=== PATIENT | male | born 1990 | race Caucasian/White ===

== ENCOUNTER → 2017-12-20 09:30 | Outpatient (CLI) | payer OTHER, SELFPAY ==
--- NOTE | 2017-12-20 | DI.ECHO.S_ITS ---
[place] [facility] +---------+ : : [address] : [address] : : : : [id number] : : : : Phone: [phone]+ Echocardiogram Report + + :Name: JAMES FAITH Study Date: 12/20/2017 Height: 74 in : :[facility] Exam Location: [facility] Weight: 230 lb: : Gender: Male BSA: 2.3 m2 : :: 1990 Age: 27 yrs BP: 15/85 mmHg: :Reason For Study: Palpitations : :Ordering Physician: Kate Serrano : :Georgina Performed By: Simi Page : + + Interpretation Summary 1) Normal left ventricular thickness and size with low systolic function (EF 50-55%). 2) Normal right ventricular size and function. 3) The left atrium is moderately dilated and the right atrium is severely dilated (by volume index) 4) No significant valvular abnormalities. 5) No prior Echo available for comparison. Procedure: A two-dimensional transthoracic echocardiogram with color flow and Doppler was performed. The study quality was technically adequate. There is no prior echocardiogram noted for this patient. The patient was in normal sinus rhythm during the exam. The patient had occasional PVCs during the exam. Left Ventricle: The left ventricle is normal in size. There is normal left ventricular wall thickness. The ejection fraction is estimated to be 50-55%. Left ventricular systolic function is low normal. There are no focal wall motion abnormalities. Diastolic parameters suggest probable normal left ventricular diastolic function and normal filling pressures. Right Ventricle: The right ventricle is normal in size and function. Atria: The left atrium is moderately dilated. The right atrium is severely dilated. There is no Doppler evidence for an interatrial shunt. Mitral Valve: The mitral valve is normal in structure and function. There is trace mitral regurgitation. Aortic Valve: The aortic valve is grossly normal. The aortic valve opens well. There is no aortic valve stenosis. No aortic regurgitation is present. Tricuspid Valve: The tricuspid valve is normal in structure and function. There is a trace or physiologic amount of tricuspid regurgitation. Pulmonary artery pressures cannot be estimated because of the lack of a measurable TR jet velocity. Pulmonic Valve: The pulmonic valve is not well visualized. There is a trace or physiologic amount of pulmonic regurgitation. Great Vessels: The aortic root is normal size. The ascending aorta is normal in size. The pulmonary artery is not well visualized, but is probably normal size. The IVC is of normal diameter and collapses greater than 50% with a sniff. This suggests a low right atrial pressure of 3 mm Hg. Pericardium/ Pleura There is no pericardial effusion. There is no pleural effusion. MMode/2D Measurements & Calculations LVIDd: 5.4 cm LVOT diam: 2.5 cm LVIDs: 4.1 cm Ao root diam: 3.4 cm FS: 24.1 % asc Aorta Diam: 3.0 cm EPSS: 0.32 cm IVSd: 0.89 cm LVPWd: 0.97 cm LV angulo. diameter/BSA (cm/m^2): 2.4 LV sys. diameter/BSA (cm/m^2): 1.8 LA A2 area: 27.8 cm2 RA long axis: 5.6 cm LA A4 area: 26.7 cm2 RA area: 29.7 cm2 LA length (vol): 6.4 cm RA vol: 133.7 ml LA vol: 98.4 ml RA : 58.0 ml/m2 LA vol index: 42.7 ml/m2 RVD1 (basal): 3.8 cm TAPSE: 3.5 cm Doppler Measurements & Calculations Ao V2 max: 133.7 cm/sec LVOT Max Maxi: 100.6 cm/sec Ao V2 mean: 91.1 cm/sec LV V1 max P.0 mmHg Ao max P.2 mmHg LV V1 VTI: 19.9 cm Ao mean P.7 mmHg MAXINE(I,D): 3.4 cm2 Ao V2 VTI: 27.8 cm MAXINE(V,D): 3.6 cm2 sev ratio: 0.72 MAXINE indexed to BSA (cm^2/m^2): 1.5 MV E max maxi: 74.7 cm/sec PA V2 max: 99.4 cm/sec MV A max maxi: 45.1 cm/sec PA V2 mean: 75.7 cm/sec MV E/A: 1.7 PA mean P.4 mmHg Med Peak E' Maxi: 11.5 cm/sec E/E' med: 6.5 Lat Peak E' Maxi: 12.2 cm/sec E/E' lat: 6.1 E/e' average: 6.3 MV dec time: 0.22 sec MV P1/2t: 65.1 msec MV P1/2t max maxi: 75.3 cm/sec MVA(P1/): 3.4 cm2 Reading Physician:01:06 PM
== END ==
PROVIDERS: Visit Provider Internal Medicine Cardiovascular Disease
DX: R00.2 Palpitations (principal)
CPT/HCPCS: 93306